=== PATIENT | female | born 1965 | race Caucasian/White ===

== ENCOUNTER 2021-05-19 05:46 | Emergency (ER) | payer OTHER, SELFPAY ==
[2021-05-19 05:54] VITALS: BP 116/71; PULSE 78; RESP 16; TEMP 36.4; O2SAT 97; BMI 30.2
--- NOTE | 2021-05-19 05:54 | ED_ITS ---
HPI - Abdominal Pain <Harini Lockwood DO - Last Filed: 05/21/21 23:38> General Chief Complaint: Abdominal Pain Stated Complaint: abdominal/gall bladder pain x1 hour Time Seen by Provider: 05/19/21 05:54 History of Present Illness HPI narrative: Patient is a 55-year-old female who presents with abdominal pain. It woke her from her sleep. She has got significant back spasm as well she feels nauseous no vomiting. This has happened to her before. She is having some possible chest discomfort as well. Was feeling well before she went to sleep. She did have fish and chips for dinner. Related Data Allergies Allergy/AdvReac Type Severity Reaction Status Date / Time promethazine [From Phenergan] AdvReac Hallucinati Verified 05/19/21 05:54 ng Review of Systems <Harini Lockwood DO - Last Filed: 05/21/21 23:38> Review of Systems Narrative: GENERAL: Denies chills, fatigue, malaise, fever, sweats, travel HEENT: Denies sinus pain, ear pain, sore throat, difficulty swallowing, neck pain RESPIRATORY: Denies dyspnea, cough, wheezing, hemoptysis, sputum. CARDIOVASCULAR: Denies chest pain, palpitations, orthopnea, edema GASTROINTESTINAL: See HPI : Denies dysuria, frequency, incontinence, hematuria, urinary retention, flank pain. MUSCULOSKELETAL: Denies weakness, joint pain, or bony pain SKIN: No rash, no erythema, no pruritus NEUROLOGIC: Denies weakness, dizziness, headache, numbness, change in speech, confusion PSYCHIATRIC: No concerning psychosocial issues. 12 point review of systems is negative except for those stated above and HPI Patient History <Harini Lockwood DO - Last Filed: 05/21/21 23:38> Social History Smoking Status: Never smoker Exam <Harini Lockwood DO - Last Filed: 05/21/21 23:38> Initial Vital Signs Initial Vital Signs: Vital Signs Temperature 97.6 F 05/19/21 05:54 Pulse Rate 78 05/19/21 05:54 Respiratory Rate 16 05/19/21 05:54 Blood Pressure 116/71 05/19/21 05:54 Pulse Oximetry 97 05/19/21 05:54 GENERAL: Alert 55-year-old female appears uncomfortable and in no acute distress. HEENT: Head atraumatic,EOMI, pupils reactive, face symmetric, moist mucous membranes CARDIOVASCULAR: Regular rate and rhythm without murmurs, rubs or gallops. RESPIRATORY: Breath sounds equal bilaterally, no wheezes rales or rhonchi. ABDOMEN: Soft, nontender. Normoactive bowel sounds all 4 quadrants. No guarding or rebound. BACK: Mild paraspinal muscle tenderness more on right than left reproducible palpation : No CVA tenderness EXTREMITIES: Normal range of motion, no clubbing or edema. Neurovascularly intact NEUROLOGICAL: Alert and oriented x4.Normal gait and speech. SKIN: Warm, dry, no laceration, no petechiae, no rashes or lesions. <Seth Daniel MD - Last Filed: 05/19/21 08:12> Initial Vital Signs Initial Vital Signs: Vital Signs Temperature 97.6 F 05/19/21 05:54 Pulse Rate 78 05/19/21 05:54 Respiratory Rate 16 05/19/21 05:54 Blood Pressure 116/71 05/19/21 05:54 Pulse Oximetry 97 05/19/21 05:54 Course <Harini Lockwood DO - Last Filed: 05/21/21 23:38> Orders Ordered: Discontinued Medications Ketorolac Tromethamine (Ketorolac 30 Mg/Ml Vial) 30 mg IV NOW ONE Stop: 05/19/21 06:02 Last Admin: 05/19/21 06:08 Dose: 30 mg Documented by: RADHA Ondansetron HCl (Ondansetron 4 Mg/2 Ml Inj) 4 mg IV NOW ONE Stop: 05/19/21 06:02 Last Admin: 05/19/21 06:08 Dose: 4 mg Documented by: RADHA Vital Signs Vital signs: Vital Signs - 8 hr 05/19/21 05:54 05/19/21 06:30 05/19/21 07:00 Temperature 97.6 F Pulse Rate 78 66 72 Respiratory Rate 16 18 18 Blood Pressure 116/71 Pulse Oximetry 97 96 95 05/19/21 07:30 05/19/21 07:52 Temperature Pulse Rate 65 Respiratory Rate 18 Blood Pressure 100/59 L Pulse Oximetry 96 <Seth Daniel MD - Last Filed: 05/19/21 08:12> Course Course Narrative: Care was continued following shift change with Dr. Lockwood. The patient's discomfort is probably related to deep fried chips with dinner last night. She has had several similar bouts of pain. There is a family history of gallbladder disease. Labs are reassuring other than a marginally elevated lipase. She says she has minimal alcohol intake. Gallbladder ultrasound shows stones, no evidence of cholecystitis. She has only slight tenderness on palpation of the abdomen. However she does have biliary colic symptoms. She will be discharged on low-fat diet and a recommendation to avoid alcohol. She has no PCM, I will refer her to surgery, Dr. Mas .Kacy Fine MD 05/19/21, 08:11am. Orders Ordered: Discontinued Medications Ketorolac Tromethamine (Ketorolac 30 Mg/Ml Vial) 30 mg IV NOW ONE Stop: 05/19/21 06:02 Last Admin: 05/19/21 06:08 Dose: 30 mg Documented by: RADHA Ondansetron HCl (Ondansetron 4 Mg/2 Ml Inj) 4 mg IV NOW ONE Stop: 05/19/21 06:02 Last Admin: 05/19/21 06:08 Dose: 4 mg Documented by: RADHA Vital Signs Vital signs: Vital Signs - 8 hr 05/19/21 05:54 05/19/21 06:30 05/19/21 07:00 Temperature 97.6 F Pulse Rate 78 66 72 Respiratory Rate 16 18 18 Blood Pressure 116/71 Pulse Oximetry 97 96 95 05/19/21 07:30 05/19/21 07:52 Temperature Pulse Rate 65 Respiratory Rate 18 Blood Pressure 100/59 L Pulse Oximetry 96 MDM - Abdominal Pain <Harini Lockwood DO - Last Filed: 05/21/21 23:38> Lab Data Result diagrams: 05/19/21 06:05 05/19/21 06:05 Labs: Lab Results 05/19/21 05/19/21 Range/Units 06:05 06:05 WBC 7.5 (4.5-11.0) X10^3/uL RBC 4.58 (4.0-5.2) X10^6/uL Hgb 12.7 (12.0-16.0) g/dL Hct 37.9 (36-46) % MCV 82.7 (80-100) fL MCH 27.6 (26-34) PG MCHC 33.4 (30-36) % RDW 14.0 (11.6-14.8) % Plt Count 229 (150-400) X10^3/uL Neut % (Auto) 58.0 (50-75) % Lymph % (Auto) 30.2 (25-40) % [place] % (Auto) 9.4 (3-14) % Eos % (Auto) 1.8 L (2-4) % Baso % (Auto) 0.6 (0-2) % Neut # (Auto) 4400 (5740-5716) /uL Lymph # (Auto) 2300 (7244-5657) /uL [place] # (Auto) 700 (0-900) /uL Eos # (Auto) 100 (0-450) /uL Baso # (Auto) 0 (0-100) /uL Sodium 139 (137-145) mmol/L Potassium 4.0 (3.4-5.1) mmol/L Chloride 102 (98-107) mmol/L Carbon Dioxide 28 (22-32) mmol/L BUN 17 (7-17) mg/dL Creatinine 0.60 (0.52-1.04) mg/dL Estimated GFR > 60.0 (>60) mL/min BUN/Creatinine Ratio 28.3 H (6-22) Glucose 117 H (70-100) mg/dL Calcium 9.4 (8.4-10.2) mg/dL Total Bilirubin 0.4 (0.2-1.3) mg/dL AST 32 (14-36) IU/L ALT 23 (<35) IU/L Alkaline Phosphatase 104 (38-126) U/L Total Protein 7.6 (6.3-8.2) g/dL Albumin 4.5 (3.5-5.0) g/dL Globulin 3.1 (1.7-4.1) g/dL Albumin/Globulin Ratio 1.5 (1.0-2.8) Lipase 351 H (23-300) U/L MDM Narrative Medical decision making narrative: Patient signed out to Dr. Daniel awaiting ultrasound results <Seth Daniel MD - Last Filed: 05/19/21 08:12> Lab Data Labs: Lab Results 05/19/21 05/19/21 Range/Units 06:05 06:05 WBC 7.5 (4.5-11.0) X10^3/uL RBC 4.58 (4.0-5.2) X10^6/uL Hgb 12.7 (12.0-16.0) g/dL Hct 37.9 (36-46) % MCV 82.7 (80-100) fL MCH 27.6 (26-34) PG MCHC 33.4 (30-36) % RDW 14.0 (11.6-14.8) % Plt Count 229 (150-400) X10^3/uL Neut % (Auto) 58.0 (50-75) % Lymph % (Auto) 30.2 (25-40) % [place] % (Auto) 9.4 (3-14) % Eos % (Auto) 1.8 L (2-4) % Baso % (Auto) 0.6 (0-2) % Neut # (Auto) 4400 (7922-4382) /uL Lymph # (Auto) 2300 (6152-0558) /uL [place] # (Auto) 700 (0-900) /uL Eos # (Auto) 100 (0-450) /uL Baso # (Auto) 0 (0-100) /uL Sodium 139 (137-145) mmol/L Potassium 4.0 (3.4-5.1) mmol/L Chloride 102 (98-107) mmol/L Carbon Dioxide 28 (22-32) mmol/L BUN 17 (7-17) mg/dL Creatinine 0.60 (0.52-1.04) mg/dL Estimated GFR > 60.0 (>60) mL/min BUN/Creatinine Ratio 28.3 H (6-22) Glucose 117 H (70-100) mg/dL Calcium 9.4 (8.4-10.2) mg/dL Total Bilirubin 0.4 (0.2-1.3) mg/dL AST 32 (14-36) IU/L ALT 23 (<35) IU/L Alkaline Phosphatase 104 (38-126) U/L Total Protein 7.6 (6.3-8.2) g/dL Albumin 4.5 (3.5-5.0) g/dL Globulin 3.1 (1.7-4.1) g/dL Albumin/Globulin Ratio 1.5 (1.0-2.8) Lipase 351 H (23-300) U/L Imaging Data US - abdomen: Radiologist's Impression: Distended gallbladder with gallstones. No evidence of cholecystitis. Negative Vergara sign. Discharge Plan Departure Patient Disposition: Home Clinical Impression: Biliary colic Cholelithiasis Qualifiers: Cholelithiasis location: gallbladder Cholecystitis presence: without cholecystitis Biliary obstruction: without biliary obstruction Qualified Code(s): K80.20 - Calculus of gallbladder without cholecystitis without obstruction Instructions: Gallstones Activity Restrictions/Additional Instructions: You should be on a low-fat diet. Avoid alcohol. Contact surgery, Dr. Mas, to arrange follow-up. Return the ER for increasing pain or fever. Referrals: Tirso Mas MD [Physician] -
--- NOTE | 2021-05-19 06:01 | DI.US.S_ITS ---
PROCEDURE: US ABDOMEN LIMITED INDICATIONS: ruq TECHNIQUE: Real-time focused scanning was performed of the abdomen, with image documentation. COMPARISON: None. FINDINGS: The liver demonstrates normal size. The liver demonstrates generalized mildly increased echogenicity. This decreases ultrasound sensitivity for detection of hepatic masses. The gallbladder is distended, measuring 12.7 cm in length. Mobile gallstones are seen layering dependently. There is also a 4-5 mm stone seen at the gallbladder neck. Mobile sludge can also be seen. The gallbladder wall is not thickened, measuring 3 mm or less. No specific pericholecystic fluid is seen. The sonographic Vergara sign is negative. There is no biliary dilatation, the common bile duct measures 3 mm. No significant pancreatic abnormality is seen on these images. IMPRESSION: Distended gallbladder, with mobile gallstones. No additional sonographic signs of cholecystitis are seen. The liver demonstrates increased echogenicity. This finding is nonspecific, yet it is most commonly attributed to fatty infiltration. Note: No significant discrepancy from the preliminary report. Dictated by: Lavell De La Torre M.D. on 05/19/2021 at 7:02 Approved by: Lavell De La Torre M.D. on 05/19/2021 at 7:04
[2021-05-19] MEDS: KETOROLAC 30 MG/ML VIAL IV (06:08)
[2021-05-19] MEDS: ONDANSETRON 4 MG/2 ML INJ IV (06:08)
[2021-05-19 06:14] LABS: Add Manual Diff / Slide Review NO; Basophils Absolute Auto 0 /uL (0-100); Basophils Percent Auto 0.6 % (0-2); Eosinophils Absolute Auto 100 /uL (0-450); Eosinophils Percent Auto 1.8 % (2-4); Hematocrit 37.9 % (36-46); Hemoglobin 12.7 g/dL (12.0-16.0); Lymphocytes Absolute Auto 2300 /uL (1100-4500); Lymphocytes Percent Auto 30.2 % (25-40); Mean Corpuscular HGB Conc 33.4 % (30-36); Mean Corpuscular Hemoglobin 27.6 PG (26-34); Mean Corpuscular Volume 82.7 fL (80-100); Monocytes Absolute Auto 700 /uL (0-900); Monocytes Percent Auto 9.4 % (3-14); Neutrophils Absolute Auto 4400 /uL (1500-7000); Platelet Count 229 X10^3/uL (150-400); Red Blood Cell Count 4.58 X10^6/uL (4.0-5.2); White Blood Cell Count 7.5 X10^3/uL (4.5-11.0)
[2021-05-19 06:30] VITALS: PULSE 66; RESP 18; O2SAT 96
[2021-05-19 06:30] LABS: Alanine Aminotransferase 23 IU/L (<35); Albumin 4.5 g/dL (3.5-5.0); Albumin Globulin Ratio 1.5 (1.0-2.8); Alkaline Phosphatase 104 U/L (38-126); Aspartate Aminotransferase 32 IU/L (14-36); BUN Creatinine Ratio 28.3 (6-22); Bilirubin Total 0.4 mg/dL (0.2-1.3); Blood Urea Nitrogen 17 mg/dL (7-17); Calcium 9.4 mg/dL (8.4-10.2); Carbon Dioxide 28 mmol/L (22-32); Chloride 102 mmol/L (98-107); Estimated Glomerular Filt Rate > 60.0 mL/min (>60); Globulin 3.1 g/dL (1.7-4.1); Glucose 117 mg/dL (70-100); HEMOLYSIS < 15 (0-50); Lipase 351 U/L (23-300); Sodium 139 mmol/L (137-145); Total Protein 7.6 g/dL (6.3-8.2)
[2021-05-19 07:00] VITALS: PULSE 72; RESP 18; O2SAT 95
[2021-05-19 07:30] VITALS: PULSE 65; RESP 18; O2SAT 96
[2021-05-19 07:52] VITALS: BP 100/59
== END 2021-05-19 08:10 | disposition home or self-care (01) ==
PROVIDERS: Emergency Provider Emergency Medicine
DX: K80.20 Calculus of gallbladder without cholecystitis without obstruction (principal); K80.50 Calculus of bile duct without cholangitis or cholecystitis without obstruction; R07.9 Chest pain, unspecified; R11.0 Nausea
CPT/HCPCS: 36415; 76705; 80053; 83690; 85025; 93005; 93010; 96374; 96375; 99284; J1885; J2405

== ENCOUNTER 2021-06-04 07:29 | Day surgery (SDC) | payer OTHER, SELFPAY ==
[2021-05-31 08:55] VITALS: BMI 29.5
[2021-06-04] VITALS (12 sets, daily range): BP systolic 109–123; BP diastolic 61–78; PULSE 61–75; RESP 12–18; TEMP 36.4–36.7; O2SAT 95–99; BMI 29.9
--- NOTE | 2021-06-04 | PATH_ITS ---
[facility] Accession Number: [id number] . 01 Material submitted: . gallbladder - GALLBLADDER AND CONTENTS . 01 Clinical history: . SDC . 02 Diagnosis: Gallbladder and Contents, Cholecystectomy: Cholelithiasis. No evidence of neoplasm. [facility] 06/06/2021 1058 Local . 02 Electronically signed: . Jhon Abbott MD, PhD, Pathologist NPI- [id number] . 01 Gross description: . The specimen is received in formalin, labeled gallbladder and contents and consists of a 14.0 x 4.5 x 4.0 cm intact gallbladder with a 0.5 cm in diameter cystic duct. The serosa is dumas-purple and smooth. Opening reveals green viscous bile with numerous brown multifaceted choleliths ranging from 0.1-0.6 cm. The mucosa is mcmullen-green and trabeculated, and the wall thickness measures 0.1 cm. Zoology Professor sections are submitted, to include the en face cystic duct margin (blue), in cassette A1. ([id number]) /[facility] 06/05/2021 1052 Local . 02 Pathologist provided ICD-10: K80.50 . 02 CPT . 866065 Performed at: 01 [facility] Cyt[facility] [address], [place], [place] [id number] MD Cabrera Yadav MD Phone: [phone] Performed at: 02 [facility] [address] [place], [place] [id number] MD Delmi Livingston MD Phone: [phone]
[2021-06-04 08:25] LABS: COVID19 -Nasal RAPID Negative (Negative)
[2021-06-04] MEDS: ACETAMINOPHEN 325 MG TABLET 975 MG PO (08:33)
[2021-06-04] MEDS: SCOPOLAMINE 1 PATCH TOP (08:33)
[2021-06-04] MEDS: GABAPENTIN 300 MG CAPSULE PO (08:33)
[2021-06-04] MEDS: LACTATED RINGERS 1,000 ML 42 ML IV (08:34)
--- NOTE | 2021-06-04 09:19 | PM.PREOP ---
Pre-operative Note Interval Note History & Physical reviewed/Exam performed by Physician: Yes Changes to H&P: No
--- NOTE | 2021-06-04 10:05 | SUR.OPER ---
Supine on padded OR bed, head on pillow, safety belt at thigh, left arm padded and tucked at side. Right arm secured on padded arm board <90 degrees abduction. Legs uncrossed. Padded footboard in place. Tape over blanket to secure lower legs.
[2021-06-04] MEDS: BUPIVACAINE 0.25% (PF) VIAL 30 ML INJ (10:10)
[2021-06-04] MEDS: CEFAZOLIN 1 GM VIAL 2 GM IV (10:10)
[2021-06-04] MEDS: fentaNYL 100 MCG/2 ML INJ IV ×2 (11:29→11:39)
[2021-06-04] MEDS: ONDANSETRON 4 MG/2 ML INJ IV ×2 (11:37→12:03)
--- NOTE | 2021-06-04 11:38 | PM.OP.1 ---
Operative Date/Time/Diagnoses Date of procedure: 06/04/21 Time of procedure: 11:38 Pre-op diagnosis: Biliary colic Post-op diagnosis: same Procedure & Clinicians Procedure: Laparoscopic cholecystectomy Same procedure as scheduled: Yes Indications: Biliary colic Surgeon: Jameson Treviño Click Yes if Unassisted: Yes Anesthesia Type: General Operative Notes Findings: Large stone filled gallbladder evidence of prior cholecystitis demonstrated by adhesions to the gallbladder Specimen(s): other (Gallbladder) Estimated Blood Loss (mL): 40 Procedure in detail: The patient was placed supine on the table and bilateral lower extremity compression devices were applied. Anesthesia was induced they were intubated with an endotracheal tube and received 2g of Ancef. A time-out was performed. They were prepped and draped in sterile fashion. An infraumbilical incision was made, the umbilical stalk was elevated and the fascia was sharply incised entering the abdomen atraumatically. A blunt tip 12mm balloon trocar was then inserted, pneumoperitoneum was established and inspection of the abdomen demonstrated no evidence of injury. They were placed head up and right side up and then a 11 mm port was placed high in the epigastrium and two 5mm in the right upper quadrant. There was evidence of prior cholecystitis demonstrated by adhesions to the gallbladder from the omentum and from the omentum to the liver. The adhesions were carefully dissected. Gallbladder was grasped by the fundus and retracted over the liver and retracted laterally by the infundibulum. Using electrocautery the lateral plane between the gallbladder and the liver was opened towards the fundus. The gallbladder was then retracted laterally and the medial plane was developed in the same manner. With the gallbladder mobilized the bottom of the cystic plate was visualized. The hepatocystic triangle was meticulosly skeletonized using hook electrocautery of all fat and fibrous tissue from both the front and the back. Only two structures were then clearly seen entering the gallbladder the cystic duct and the cystic artery. With the critical view of safety fully established the cystic duct was clipped twice proximally and once distally using the Weck 10 mm hemo clip applied under direct visualization and then sharply divided. The cystic artery was divided in the same fashion. The gallbladder was removed from the liver bed using electro cautery. The liver bed was then inspected for hemostasis and this was achieved. The abdomen was irrigated with sterile saline and inspection was made that showed the clips in good position. The specimen was removed using Endo-Catch. The abdomen was desufflated. The umbilical fascia was closed with 0 Vicryl in a [id number] fashion under direct visualization. Skin incisions were irrigated and closed with 4-0 Monocryl. Skin incisions were notable for persistent oozing required electric cautery to control. 30 ml of 0.25% bupivacaine was infiltrated into the subcutaneous tissue of the incisions. The wounds were sealed with Dermabond. Patient emerged from anesthesia was extubated and transferred to recovery in stable condition. The sponge and instrument count at the end of the operation was correct. Complications: none Post-operative Condition: stable Disposition: same day surgery
[2021-06-04] MEDS: OXYCODONE IR 5 MG TABLET PO (12:03)
== END 2021-06-04 12:45 | disposition home or self-care (01) ==
PROVIDERS: Referring Provider Surgery; Visit Provider Surgery
PROC: 0FT44ZZ Resection of Gallbladder, Percutaneous Endoscopic Approach (ICD-10-PCS; CPT 47562; principal; 2021-06-04 09:30)
DX: K80.20 Calculus of gallbladder without cholecystitis without obstruction (principal); K82.8 Other specified diseases of gallbladder; E03.9 Hypothyroidism, unspecified; Z20.822 Contact with and (suspected) exposure to COVID-19
CPT/HCPCS: 47562; 82962; 87635; J0690; J1100; J2250; J2405; J2704; J3010

== ENCOUNTER → 2022-09-20 13:13 | Outpatient (CLI) | payer OTHER, SELFPAY ==
[2022-09-20 14:19] LABS: Influenza A - CEPHEID Flu A POSITIVE (NEGATIVE); Influenza B - CEPHEID Flu B NEGATIVE (NEGATIVE); Respiratory Syncytial Virus Negative (Negative)
[2022-09-20 14:43] LABS: COVID-19 CEPHEID 4-PLEX PCR Negative (Negative)
== END ==
PROVIDERS: Visit Provider Physician Assistant Medical
DX: R05.1 Acute cough (principal)
CPT/HCPCS: 0241U